=== PATIENT | female | born 1965 | race Caucasian/White ===

== ENCOUNTER 2018-08-04 16:17 | Emergency (ER) | payer BC, SELFPAY ==
[2018-08-04] VITALS (42 sets, daily range): BP systolic 104–129; BP diastolic 48–74; PULSE 63–90; RESP 6–21; TEMP 36.7–36.8; O2SAT 93–100
--- NOTE | 2018-08-04 16:56 | DI.RAD_ITS ---
SYMPTOM/DIAGNOSIS: LEFT SIDED CHEST PAIN PA AND LATERAL CHEST: There are no prior comparison exams. The heart size is normal. The lungs are well inflated and clear. Surgical clips are seen in the region of the fundus of the stomach. IMPRESSION: No acute abnormality.
[2018-08-04] MEDS: Ketorolac 15 MG/ML VIAL IVP (17:09)
[2018-08-04] MEDS: Aspirin 325 MG TAB PO (17:09)
[2018-08-04 17:11] LABS: Abs Immature Grans 0.01 k/cumm (0.0-0.09); Absolute Basophil Count 0.02 k/cumm (0.0-0.2); Absolute Eosinophil Count 0.14 k/cumm (0.0-0.7); Absolute Lymphocyte Count 2.28 k/cumm (1.2-3.4); Absolute Monocyte Count 0.49 k/cumm (0.11-0.7); Absolute Neutrophil Count 3.73 k/cumm (1.2-6.7); Basophils % 0.3; Eosinophils % 2.1; HCT 37.9 % (36.0-46.0); HGB 12.2 g/dL (12.0-15.5); Immature Grans % 0.1; Lymphocytes % 34.2; Mean Corp. HGB Concentration 32.2 g/dL (32.0-36.0); Mean Corpuscular Volume 93.3 fL (80-95); Mean Platelet Volume 9.7 fL (8.0-11.0); Monocytes % 7.3; Platelet Count 243 x1000/uL (130-400); RBC 4.06 m/cumm (4.00-5.20); RBC Distribution Width 14.1 % (11.7-14.6); White Blood Cell Count 6.67 k/cumm (4.4-10.8)
[2018-08-04] MEDS: Metoclopramide 10 MG/2 ML VIAL IVP (17:11)
[2018-08-04] MEDS: Dexamethasone 10 MG/ML VIAL IVP (17:14)
--- NOTE | 2018-08-04 17:28 | W.ED.GENAD ---
Discharge Plan Disposition Patient Disposition: HOME Condition: Good Discharge Details Chief Complaint: Chest Pain Clinical Impression: Atypical migraine, Chest pain, Light-headedness Primary Care Provider: RANDALL,LOCAL ED Provider: Louis Figueroa Home Meds and New Rx's Prescriptions: No Action lamotrigine [Lamictal] 25 MG tablet 50 mg PO BID RF: 0 venlafaxine 100 MG tablet 225 mg PO HS RF: 0 nitrofurantoin monohyd/m-cryst [Macrobid] 100 MG capsule 100 mg PO HS RF: 0 multivitamin [Once Daily] 1 EACH tablet 1 tab PO HS RF: 0 melatonin 5 MG capsule 5 mg PO HS RF: 0 hydrocodone-acetaminophen 1 TAB tablet 1 tab PO Q6H PRN (Reason: Pain) Qty: 5 RF: 0 ondansetron 4 MG tablet,disintegrating 4 mg PO Q8H PRN (Reason: Nausea / Vomiting) Qty: 6 RF: 0 alprazolam [Xanax] 0.25 mg Tablet 0.25 mg PO PRNRF: 0 quetiapine [Seroquel] 50 mg Tablet 50 mg PO HS RF: 0 Discharge Instructions Instructions: Chest Pain (ED) Additional Instructions: Please follow-up as soon as possible with the primary care provider we will provide you with. Please go to the scheduled stress test that we will set up free. If you notice any worsening of your symptoms, or any new symptoms such as vomiting, diarrhea, fever, chills, shortness of breath, chest pain, numbness, weakness, or fainting , please return immediately to the emergency department for reevaluation. As always, it was a pleasure participating in your medical care today. Medical Decision Making MDM Narrative Medical decision making narrative: This is a 52-year-old female who presents for evaluation of mild dizziness, diaphoresis, mild headache, left jaw and left arm pain with mild chest pain. 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 Diaphoresis and dizziness was initially brief, over she still demonstrates very mild headache, some left jaw and left arm pain. It is not exertional. Insert for family history patient does not have any significant cardiac risk factors. Symptoms are very atypical. She does state that she often gets headaches which are similar to this and have some associated symptoms with them. We will perform a cardiac workup, and treat her headache, rehydrate her and she does appear dry. EKG 16: 32 Rate 78, intervals normal, no ST elevations or depressions. Questionable Q-wave in V2. Inverted T waves in lead III. EKG 19:31 Rate 64, intervals normal, sinus rhythm. No ST elevations or depressions. No significant T-wave inversions except for a small inversion in lead III. Questionable Q-wave in V2. No other abnormalities. Laboratory workup has returned benign. Serial troponins are negative. No significant white count. TSH is slightly low. Chest x-ray per virtual radiology demonstrates no acute cardiopulmonary process. Serial EKGs are benign. After the patient's headache resolved, the majority of her symptoms also resolved. She has no chest pain, arm or shoulder pain. She states that her jaw does feel a little sore, but denies any other radiation or any other pain. At this time I feel that her symptoms are most likely secondary to an atypical migraine, mild dehydration, and less likely cardiac. She is in the low risk cardiac risk category for the heart score. I do feel that with her atypical symptomatology, and the high likelihood of this being secondary to an atypical migraine she is safe for discharge home. We will set her up with a primary care provider, as well as an exercise stress test on an outpatient basis. We discussed red flags which to return the patient understands. I have extensively reviewed the treatment plan and discharge instructions with the patient. I have addressed all patient concerns at this time. The patient was made aware of what symptoms to monitor for that would warrant a return to the emergency department. Discussed the plan with the patient, they demonstrate verbal understanding and agreement with our assessment and plan at this time. Lab Data Lab Results 08/04/18 Range/Units 17:05 WBC 6.67 (4.4-10.8) k/cumm RBC 4.06 (4.00-5.20) m/cumm Hgb 12.2 (12.0-15.5) g/dL Hct 37.9 (36.0-46.0) % MCV 93.3 (80-95) fL MCH 30.0 (27.0-33.0) pg MCHC 32.2 (32.0-36.0) g/dL RDW 14.1 (11.7-14.6) % Plt Count 243 (130-400) x1000/uL MPV 9.7 (8.0-11.0) fL Immature Gran % 0.1 Neutrophils % 56.0 Lymphocytes % 34.2 Monocytes % 7.3 Eosinophils % 2.1 Basophils % 0.3 Absolute Neutrophils 3.73 (1.2-6.7) k/cumm Absolute Lymphocytes 2.28 (1.2-3.4) k/cumm Absolute Monocytes 0.49 (0.11-0.7) k/cumm Absolute Eosinophils 0.14 (0.0-0.7) k/cumm Absolute Basophils 0.02 (0.0-0.2) k/cumm HPI - General Adult General Date/Time Provider Initiated Documentation: 08/04/18 16:54. HPI Narrative: This is a 52-year-old female with a past medical history of hypothyroidism, migraines, asthma, past surgical history of appendectomy, ectopic , multiple gastric sleeve in band surgeries, family history of myocardial infarction. She presents today with complaint of left jaw and arm pain, very mild headache, some dizziness, intermittent diaphoresis, and mild chest pain. Patient states that roughly 2 hours prior to arrival she began to have mild left jaw, left arm, very minimal left-sided chest pain. It was not exertional. It occurred at rest. She had some associated mild dizziness, diaphoresis, and a gradual onset of a mild headache. There is no pleuritic chest pain. The headache was not the worst headache of her life. It was not thunderclap in onset or origin. There are no associated visual changes. She had no associated arm numbness tingling or weakness. She denies any significant chest pressure or weight on her chest. She denies any aggravating or relieving factors. Activity did not worsen her symptoms. She denies any cough, productive sputum. Denies PE risk factors such as recent long car rides, immobilization, recent surgery, prior history of DVT or PE, family history of PE or DVT, morbid obesity, exogenous estrogen and smoking, hemoptysis, history of cancer. Patient has no other complaints at this time. Patient does state that she has had headaches like this in the past, and that they often present with finding out symptoms of lightheadedness, and diaphoresis. Patient denies any cardiac history. She states the only family member who had cardiac disease with her father who is in his 50s. Patient does not smoke. She denies any other complaints at this time Related Data Home Medications Medication Instructions Recorded Confirmed lamotrigine [Lamictal] 50 mg PO BID 05/10/18 08/04/18 melatonin 5 mg PO HS 05/10/18 08/04/18 multivitamin [Once Daily] 1 tab PO HS 05/10/18 08/04/18 nitrofurantoin monohyd/m-cryst 100 mg PO HS 05/10/18 08/04/18 [Macrobid] venlafaxine 225 mg PO HS 05/10/18 08/04/18 alprazolam [Xanax] 0.25 mg PO PRN 08/04/18 quetiapine [Seroquel] 50 mg PO HS 08/04/18 08/04/18 Previous Rx's Medication Instructions Recorded hydrocodone-acetaminophen 1 tab PO Q6H PRN #5 tab 05/10/18 ondansetron 4 mg PO Q8H PRN #6 tabef 05/10/18 Allergies Allergy/AdvReac Type Severity Reaction Status Date / Time codeine Allergy Unverified 05/10/18 15:56 Latex, Natural Rubber Allergy Unverified 05/10/18 15:56 General Stated Complaint: Chest Pain CAR: 2 Review of Systems Review of Systems 10 point review of systems was performed, pertinent positives and negatives are noted in the history of present illness. [facility] Social History Smoking/Tobacco Use Status: Never Exam Narrative Exam Narrative: 1.Const: Well-nourished, Well-developed, appearing stated age 2.Eyes: PERRL, no conjunctival injection, and symmetrical lids. Cerebellar function testing is normal. The patient demonstrates a normal hints exam with no findings concerning for a central event. No vertical nystagmus. The head impulse test is negative for any significant central abnormality. Normal test of skew. No suggestion of a central cerebellar event. 3.ENT: Atraumatic external nose and ears. Moist MM. Neck: Symmetric, trachea midline, No thyromegaly. Patient demonstrates good movement of cervical neck. There is no nuchal rigidity, no nuchal tenderness. Patient is able to flex the neck without any difficulty or significant pain. Negative Kernig's and Brudzinski sign. 4.CVS: +S1/S2, No murmurs or gallops. Peripheral pulses 2+ and equal in all extremities. Brisk capillary refill in all extremities. 5.RESP: Unlabored respiratory effort. Clear to auscultation bilaterally. No wheezes rales or rhonchi, no reproducible chest pain. 6.GI: Soft, Nontender/Nondistended, No hepatosplenomegaly. No guarding or rebound. 7.MSK: Normocephalic/Atraumatic, Extremities w/o deformity or ttp No cyanosis or clubbing, Normal movement of all extremities 8.Skin: Warm, Dry. No rashes or lesions. 9.Neuro: fire prevention officer II-XII grossly intact. Sensation grossly intact, no focal neurologic deficits. All 6 cardinal planes of vision or fully intact. No evidence of horizontal or vertical nystagmus. The patient demonstrated a normal obrqnl-kfco-gchtgw, good dexterity. There was no evidence of dysdiadochokinesia. Patient was able to ambulate without difficulty. There was no wide-based gait. Romberg, and fjjz-yt-oxou are both normal on testing. Sensation was intact bilaterally as well as muscle strength bilaterally for all extremities. Patient was able to verbalize butter cup with no slurring, or miss pronunciation. 10.Psych: (AAO) x3. Appropriate mood and affect Course Vital Signs Temperature 36.7 C 08/04/18 16:40 Pulse 78 08/04/18 16:40 Respiratory Rate 08/04/18 16:40 Blood Pressure 129/71 08/04/18 16:40 Pulse Oximetry 98 08/04/18 16:40 Temperature 36.7 C 08/04/18 16:40 Pulse 78 08/04/18 16:40 Respiratory Rate 18 08/04/18 17:17 Blood Pressure 129/71 08/04/18 16:40 Pulse Oximetry 98 08/04/18 16:40 Lab/Test Results Lab/Test Results: Laboratory Tests 08/04/18 17:05 WBC 6.67 RBC 4.06 Hgb 12.2 Hct 37.9 MCV 93.3 MCH 30.0 MCHC 32.2 RDW 14.1 Plt Count 243 MPV 9.7 Immature Gran % 0.1 Neutrophils % 56.0 Lymphocytes % 34.2 Monocytes % 7.3 Eosinophils % 2.1 Basophils % 0.3 Absolute Neutrophils 3.73 Absolute Lymphocytes 2.28 Absolute Monocytes 0.49 Absolute Eosinophils 0.14 Absolute Basophils 0.02
[2018-08-04 17:32] LABS: ALT 21 U/L (12-78); AST 18 U/L (15-37); Albumin 3.5 g/dL (3.4-5.0); Alkaline Phosphatase 124 U/L (46-116); Anion Gap 7.3 mmol/L (3-11); BUN 7 mg/dL (7-18); Bilirubin, Total 0.2 mg/dL (0.2-1.0); CO2 27.7 mmol/L (21.0-32.0); CREATININE 0.69 mg/dL (0.55-1.02); Calcium 8.3 mg/dL (8.5-10.1); Chloride 106 mmol/L (98-107); Glucose 77 mg/dL (70-100); Sodium 141 mmol/L (136-145); TSH 0.13 uIU/mL (0.358-3.74); Total Protein 7.2 g/dL (6.4-8.2)
[2018-08-04 17:36] LABS: Troponin I < 0.02 ng/mL (0.00-0.06)
--- NOTE | 2018-08-04 18:04 | DI.VRAD_ITS ---
EXAM: XR Chest, 2 Views EXAM DATE/TIME: 08/04/2018 5:00 PM CLINICAL HISTORY: 52 years old, female; Pain; Chest pain; Left-sided chest pain; Patient HX: Left sided chest pain TECHNIQUE: XR of the chest, 2 views. COMPARISON: No relevant prior studies available. FINDINGS: Lungs: Unremarkable. No consolidation. Pleural space: Unremarkable. No pleural effusion. No pneumothorax. Heart/Mediastinum: Unremarkable. No cardiomegaly. Upper abdomen: Surgical clips project over the left upper quadrant. Bones/joints: Minimal thoracic spondylosis and bilateral acromioclavicular joint arthrosis noted. No acute fractures. IMPRESSION: Negative for acute cardiopulmonary disease. Dictated and Authenticated by: Karl Wilkinson MD. Ordering:LISA LEO MD
--- NOTE | 2018-08-04 18:23 | NUR.NOTE ---
data from another pt was accidently enterd and erased from this chart , kasey evans RNNvinicioing Note:
[2018-08-04 20:04] LABS: Troponin I < 0.02 ng/mL (0.00-0.06)
--- NOTE | 2018-08-05 12:23 | CMPROGNOTE_ITS ---
Care Management Progress Note 08/05/18-Pt seen in ED on 08/04/18 for chest pain, light headedness and atypical headache. Pt is a traveling nurse and needsa temporary pcp. CM has faxed referral to [facility] as Alee Brown was steward/stewardess second. Stress test referral sent to [facility] with [facility].
== END 2018-08-04 21:03 | disposition home or self-care (01) ==
PROVIDERS: Emergency Provider Student in an Organized Health Care Education/Training Program
DX: G43.809 Other migraine, not intractable, without status migrainosus (principal); R42 Dizziness and giddiness; R07.9 Chest pain, unspecified
CPT/HCPCS: 36415; 80053; 93005; 96361; 96374; 96375; 99285; 71046; 84443; 84484; 85025; 93010; J1100; J1885; J2765

== ENCOUNTER 2018-09-23 22:28 | Emergency (ER) | payer BC, SELFPAY ==
[2018-09-23 22:37] VITALS: BP 146/76; PULSE 84; RESP 16; TEMP 36.4; O2SAT 98
--- NOTE | 2018-09-23 22:59 | W.ED.GENAD ---
Discharge Plan Disposition Patient Disposition: HOME Condition: Improving Discharge Details Chief Complaint: Headache Clinical Impression: Migraine Primary Care Provider: RANDALL,LOCAL ED Provider: Lucas Gauthier Home Meds and New Rx's Prescriptions: No Action lamotrigine [Lamictal] 25 MG tablet 50 mg PO BID RF: 0 venlafaxine 100 MG tablet 225 mg PO HS RF: 0 nitrofurantoin monohyd/m-cryst [Macrobid] 100 MG capsule 100 mg PO HS RF: 0 multivitamin [Once Daily] 1 EACH tablet 1 tab PO HS RF: 0 melatonin 5 MG capsule 5 mg PO HS RF: 0 hydrocodone-acetaminophen 1 TAB tablet 1 tab PO Q6H PRN (Reason: Pain) Qty: 5 RF: 0 ondansetron 4 MG tablet,disintegrating 4 mg PO Q8H PRN (Reason: Nausea / Vomiting) Qty: 6 RF: 0 alprazolam [Xanax] 0.25 mg Tablet 0.25 mg PO PRNRF: 0 quetiapine [Seroquel] 50 mg Tablet 50 mg PO HS RF: 0 uaiakgrbzd-qvgwfrrwbziie-stdv [Fioricet] 50-300-40 mg Capsule 1 cap PO Q4H PRNRF: 0 Discharge Instructions Instructions: Migraine Headache (ED) Additional Instructions: Return immediately to the emergency department for any new or significant worsening of symptoms including fever chills, site reaction, site infection. Otherwise take your medication as prescribed and follow-up with your primary care provider when you return home as needed for reassessment Referrals: Primary Care Provider [Outside] Discharge Data Discharge Date/Time-TO BE ENTERED AT DEPARTURE: 09/24/18 00:47 Medical Decision Making <Wilder Egan NP - Last Filed: 09/24/18 16:02> Patient presenting to the emergency department with chief complaint of migraine. Patient states that she has had a migraine for the past 4 days and has been taking her normal Fioricet and other prescribed medications with no relief of her migraine headache. Patient denies any new symptoms and states that this is similar to previous episodes that she gets every couple months. Patient states that she has had full workup including CT and MRI imaging which came back negative except for diagnosis of complex migraine. Patient states worsening symptoms on the left. Physical exam is unremarkable and shows no focal neurological deficits, normal cranial nerve examination, normal neurological exam. Patient is afebrile and otherwise stable in appearance. Plan to establish IV access, give Toradol, Compazine, Benadryl, Decadron and IV fluids Patient reassessed and showed no improvement of symptoms. Consulted with Dr. Lucas Gauthier in regards to occipital block procedure which patient was in agreement with. Please see his notation for procedural occipital nerve block Patient was reassessed and states significant reduction in pain control. Patient was discharged with instructions to return for any new or significant worsening of symptoms or any site or injection reaction. Patient to follow-up with primary care provider as needed when she returns home to [place]. After discussion of diagnosis and plan of care patient has no further needs, questions, or concerns and states clear understanding to return to the emergency department for any worsening symptoms. HPI <Wilder Egan NP - Last Filed: 09/24/18 16:02> General Mode of arrival: ambulatory. Date/Time Provider Initiated Documentation: 09/23/18 22:43. Limitations to Documentation: no limitations. Information obtained by: patient and RN notes reviewed. History of Present Illness 52 year old F presents to the emergency department with the chief complaint of Migraine, described as mild, with intensity rated at 9. Quality is described as dull and constant, and is localized to the head. Patient started experiencing this day(s) (4) and it has been constant. No relieving factors improve symptom(s), No exacerbating factors reported . Patient did receive the following treatments prior to arrival, other (Fioricet) Related Data Home Medications Medication Instructions Recorded Confirmed hydrocodone-acetaminophen 1 tab PO Q6H PRN #5 tab 05/10/18 09/23/18 lamotrigine [Lamictal] 50 mg PO BID 05/10/18 09/23/18 melatonin 5 mg PO HS 05/10/18 09/23/18 multivitamin [Once Daily] 1 tab PO HS 05/10/18 09/23/18 nitrofurantoin monohyd/m-cryst 100 mg PO HS 05/10/18 09/23/18 [Macrobid] ondansetron 4 mg PO Q8H PRN #6 tabef 05/10/18 09/23/18 venlafaxine 225 mg PO HS 05/10/18 09/23/18 alprazolam [Xanax] 0.25 mg PO PRN 08/04/18 quetiapine [Seroquel] 50 mg PO HS 08/04/18 09/23/18 qozvrpjuuc-mkenrzwwcdvrd-ddoh 1 cap PO Q4H PRN 09/23/18 09/23/18 [Fioricet] Previous Rx's Medication Instructions Recorded hydrocodone-acetaminophen 1 tab PO Q6H PRN #5 tab 05/10/18 ondansetron 4 mg PO Q8H PRN #6 tabef 05/10/18 Allergies Allergy/AdvReac Type Severity Reaction Status Date / Time bupropion [From Wellbutrin] Allergy Unverified 09/23/18 22:34 codeine Allergy Unverified 05/10/18 15:56 Latex, Natural Rubber Allergy Unverified 05/10/18 15:56 mirtazapine [From Remeron] Allergy Unverified 09/23/18 22:34 General Stated Complaint: Headache CAR: 3 Review of Systems <Wilder Egan NP - Last Filed: 09/24/18 16:02> Constitutional Denies body ache(s), Denies chills, Denies fever(s) and Reports headache(s) Eyes Reports photophobia ENT Reports headache(s) Cardiovascular Denies chest pain and Denies syncope Gastrointestinal Reports nausea and Denies vomiting Neurologic Denies syncope and Reports headache(s) Exam <Wilder Egan NP - Last Filed: 09/24/18 16:02> Const General: cooperative, healthy appearing, no acute distress and well groomed Orientation: alert, awake and oriented x3 HENMT Head: normal to inspection Ears: hearing grossly normal bilaterally and TM's normal bilaterally Mouth: oral mucosae normal and moist mucous membranes Throat: posterior oropharynx normal Eyes Visual Redding: normal visual redding by confrontation Alignment and Position: alignment normal Periorbital: periorbital findings normal Eyelids: eyelids normal Sclera: sclerae normal Cornea: corneas normal Pupils: PERRL EOM: EOM intact bilaterally Neck Neck: normal visual inspection, full ROM, no lymphadenopathy and no meningeal signs Resp Effort & Inspection: normal respiratory effort and able to speak in complete sentences Auscultation: clear to auscultation bilaterally Cardio Rate: regular rate Rhythm: regular rhythm Heart Sounds: S1 normal and S2 normal Neuro General: alert, awake, oriented x3, gait normal, tone normal, moves all extremities, CN's II-XI intact bilaterally and not confused Cognition: normal cognition Speech: speech normal Motor: muscle tone normal throughout, strength 5/5 throughout, no pronator drift, no movement abnormalities noted and no fasciculations Sensory Exam: no sensory deficits noted Coordination: rapid alternating movement UE normal Course <Wilder Egan NP - Last Filed: 09/24/18 16:02> Vital Signs Temperature 36.4 C L 09/23/18 22:37 Pulse 84 09/23/18 22:37 Respiratory Rate 16 09/23/18 22:37 Blood Pressure 146/76 H 09/23/18 22:37 Pulse Oximetry 98 09/23/18 22:37 Temperature 36.4 C L 09/23/18 22:37 Pulse 84 09/23/18 22:37 Respiratory Rate 16 09/23/18 22:37 Respiratory Effort 09/23/18 22:37 Blood Pressure 146/76 H 09/23/18 22:37 Blood Pressure Position Sitting 09/23/18 22:37 Pulse Oximetry 98 09/23/18 22:37 Oxygen Delivery Method Room Air 09/23/18 22:37 Oxygen Flow Rate 0 09/23/18 22:37 Pain Level 9 09/23/18 22:37 <Lucas Gauthier MD - Last Filed: 10/02/18 13:32> Nerve Block Nerve Block 1: Time out performed: Yes Local Anesthetic: Lidocaine 1% and Bupivicaine 0.5% Amount of anesthesia used (mL): 4 Side: left and right Nerve Blocks: occipital Procedure Successful: Yes Patient Tolerated Procedure: well and no complications Complications: none
--- NOTE | 2018-09-23 23:02 | ED.GENADUL_ITS ---
Discharge Plan Disposition Patient Disposition: HOME Condition: Improving Discharge Details Chief Complaint: Headache Clinical Impression: Migraine Primary Care Provider: [facility] ED Provider: Lucas Gauthier Home Meds and New Rx's Prescriptions: No Action lamotrigine [Lamictal] 25 MG tablet 50 mg PO BID RF: 0 venlafaxine 100 MG tablet 225 mg PO HS RF: 0 nitrofurantoin monohyd/m-cryst [Macrobid] 100 MG capsule 100 mg PO HS RF: 0 multivitamin [Once Daily] 1 EACH tablet 1 tab PO HS RF: 0 melatonin 5 MG capsule 5 mg PO HS RF: 0 hydrocodone-acetaminophen 1 TAB tablet 1 tab PO Q6H PRN (Reason: Pain) Qty: 5 RF: 0 ondansetron 4 MG tablet,disintegrating 4 mg PO Q8H PRN (Reason: Nausea / Vomiting) Qty: 6 RF: 0 alprazolam [Xanax] 0.25 mg Tablet 0.25 mg PO PRNRF: 0 quetiapine [Seroquel] 50 mg Tablet 50 mg PO HS RF: 0 vktbqnvfyg-jagddstfwuqrm-vker [Fioricet] 50-300-40 mg Capsule 1 cap PO Q4H PRNRF: 0 Discharge Instructions Instructions: Migraine Headache (ED) Additional Instructions: Return immediately to the emergency department for any new or significant worsening of symptoms including fever chills, site reaction, site infection. Otherwise take your medication as prescribed and follow-up with your primary care provider when you return home as needed for reassessment Referrals: Primary Care Provider [Outside] Discharge Data Discharge Date/Time-TO BE ENTERED AT DEPARTURE: 09/24/18 00:47 Medical Decision Making <Wilder Egan NP - Last Filed: 09/24/18 16:02> Patient presenting to the emergency department with chief complaint of migraine. Patient states that she has had a migraine for the past 4 days and has been taking her normal Fioricet and other prescribed medications with no relief of her migraine headache. Patient denies any new symptoms and states that this is similar to previous episodes that she gets every couple months. Patient states that she has had full workup including CT and MRI imaging which came back negative except for diagnosis of complex migraine. Patient states worsening symptoms on the left. Physical exam is unremarkable and shows no focal neurological deficits, normal cranial nerve examination, normal neurological exam. Patient is afebrile and otherwise stable in appearance. Plan to establish IV access, give Toradol, Compazine, Benadryl, Decadron and IV fluids Patient reassessed and showed no improvement of symptoms. Consulted with Dr. Lucas Gauthier in regards to occipital block procedure which patient was in agreement with. Please see his notation for procedural occipital nerve block Patient was reassessed and states significant reduction in pain control. Patient was discharged with instructions to return for any new or significant worsening of symptoms or any site or injection reaction. Patient to follow-up with primary care provider as needed when she returns home to [place]. After discussion of diagnosis and plan of care patient has no further needs, questions , or concerns and states clear understanding to return to the emergency department for any worsening symptoms. HPI <Wilder Egan NP - Last Filed: 09/24/18 16:02> General Mode of arrival: ambulatory . Date/Time Provider Initiated Documentation: 09/23/18 22:43 . Limitations to Documentation: no limitations . Information obtained by: patient and RN notes reviewed . History of Present Illness 52 year old F presents to the emergency department with the chief complaint of Migraine, described as mild, with intensity rated at 9. Quality is described as dull and constant, and is localized to the head. Patient started experiencing this day(s) (4) and it has been constant. No relieving factors improve symptom(s), No exacerbating factors reported . Patient did receive the following treatments prior to arrival, other (Fioricet) Related Data Home Medications Medication Instructions Recorded Confirmed hydrocodone-acetaminophen 1 tab PO Q6H PRN #5 tab 05/10/18 09/23/18 lamotrigine [Lamictal] 50 mg PO BID 05/10/18 09/23/18 melatonin 5 mg PO HS 05/10/18 09/23/18 multivitamin [Once Daily] 1 tab PO HS 05/10/18 09/23/18 nitrofurantoin monohyd/m-cryst 100 mg PO HS 05/10/18 09/23/18 [Macrobid] ondansetron 4 mg PO Q8H PRN #6 tabef 05/10/18 09/23/18 venlafaxine 225 mg PO HS 05/10/18 09/23/18 alprazolam [Xanax] 0.25 mg PO PRN 08/04/18 quetiapine [Seroquel] 50 mg PO HS 08/04/18 09/23/18 hwuucaqixo-tohezkdhrdwik-molc 1 cap PO Q4H PRN 09/23/18 09/23/18 [Fioricet] Previous Rx's Medication Instructions Recorded hydrocodone-acetaminophen 1 tab PO Q6H PRN #5 tab 05/10/18 ondansetron 4 mg PO Q8H PRN #6 tabef 05/10/18 Allergies Allergy/AdvReac Type Severity Reaction Status Date / Time bupropion [From Wellbutrin] Allergy Unverified 09/23/18 22:34 codeine Allergy Unverified 05/10/18 15:56 Latex, Natural Rubber Allergy Unverified 05/10/18 15:56 mirtazapine [From Remeron] Allergy Unverified 09/23/18 22:34 General Stated Complaint: Headache CAR: 3 Review of Systems <Wilder Egan NP - Last Filed: 09/24/18 16:02> Constitutional Denies body ache(s), Denies chills, Denies fever(s) and Reports headache(s) Eyes Reports photophobia ENT Reports headache(s) Cardiovascular Denies chest pain and Denies syncope Gastrointestinal Reports nausea and Denies vomiting Neurologic Denies syncope and Reports headache(s) Exam <Wilder Egan NP - Last Filed: 09/24/18 16:02> Const General: cooperative, healthy appearing, no acute distress and well groomed Orientation: alert, awake and oriented x3 HENMT Head: normal to inspection Ears: hearing grossly normal bilaterally and TM's normal bilaterally Mouth: oral mucosae normal and moist mucous membranes Throat: posterior oropharynx normal Eyes Visual Redding: normal visual redding by confrontation Alignment and Position: alignment normal Periorbital: periorbital findings normal Eyelids: eyelids normal Sclera: sclerae normal Cornea: corneas normal Pupils: PERRL EOM: EOM intact bilaterally Neck Neck: normal visual inspection, full ROM, no lymphadenopathy and no meningeal signs Resp Effort & Inspection: normal respiratory effort and able to speak in complete sentences Auscultation: clear to auscultation bilaterally Cardio Rate: regular rate Rhythm: regular rhythm Heart Sounds: S1 normal and S2 normal Neuro General: alert, awake, oriented x3, gait normal, tone normal, moves all extremities, CN's II-XI intact bilaterally and not confused Cognition: normal cognition Speech: speech normal Motor: muscle tone normal throughout, strength 5/5 throughout, no pronator drift , no movement abnormalities noted and no fasciculations Sensory Exam: no sensory deficits noted Coordination: rapid alternating movement UE normal Course <Wilder Egan NP - Last Filed: 09/24/18 16:02> Vital Signs Temperature 36.4 C L 09/23/18 22:37 Pulse 84 09/23/18 22:37 Respiratory Rate 16 09/23/18 22:37 Blood Pressure 146/76 H 09/23/18 22:37 Pulse Oximetry 98 09/23/18 22:37 Temperature 36.4 C L 09/23/18 22:37 Pulse 84 09/23/18 22:37 Respiratory Rate 16 09/23/18 22:37 Respiratory Effort 09/23/18 22:37 Blood Pressure 146/76 H 09/23/18 22:37 Blood Pressure Position Sitting 09/23/18 22:37 Pulse Oximetry 98 09/23/18 22:37 Oxygen Delivery Method Room Air 09/23/18 22:37 Oxygen Flow Rate 0 09/23/18 22:37 Pain Level 9 09/23/18 22:37 <Lucas Gauthier MD - Last Filed: 10/02/18 13:32> Nerve Block Nerve Block 1: Time out performed: Yes Local Anesthetic: Lidocaine 1% and Bupivicaine 0.5% Amount of anesthesia used (mL): 4 Side: left and right Nerve Blocks: occipital Procedure Successful: Yes Patient Tolerated Procedure: well and no complications Complications: none
[2018-09-23] MEDS: Ketorolac 30 MG/ML VIAL IVP (23:06)
[2018-09-23] MEDS: diphenhydrAMINE 50 MG/ML VIAL 25 MG IVP (23:07)
[2018-09-23] MEDS: Normal Saline 1,000 ML 1000 ML IV (23:09)
[2018-09-23] MEDS: Dexamethasone 10 MG/ML VIAL IVP (23:09)
[2018-09-23] MEDS: Prochlorperazine 10 MG/2 ML VIAL IVP (23:09)
[2018-09-24] MEDS: Bupivacaine 0.5% Pres-Free 30 ML VIAL (00:18)
== END 2018-09-24 00:47 | disposition home or self-care (01) ==
PROVIDERS: Emergency Provider Student in an Organized Health Care Education/Training Program
DX: G43.909 Migraine, unspecified, not intractable, without status migrainosus (principal)
CPT/HCPCS: 96361; 96374; 96375; 99284; J0780; J1100; J1200; J1885